=== PATIENT | female | born 2000 | race Caucasian/White ===

== ENCOUNTER 2018-12-11 08:01 | Outpatient (CLI) | payer BC ==
--- NOTE | 2018-12-11 09:42 | ULT ---
HEPATIC ULTRASOUND WITH DOPPLER: DATE: 12/11/2018. PROVIDED CLINICAL HISTORY: Elevated LFTs. FINDINGS: The visualized portions of the IVC and pancreas appear normal. The liver demonstrates a circumscribe d echogenic focus involving the right hepatic lobe near the dome anteriorly measuring less than a vivi timeter and likely reflecting a hemangioma. No additional mass is evident. No evidence for intrahep atic biliary ductal dilatation. The gallbladder demonstrates no stones, wall thickening, or pericholecystic fluid. The spleen is not enlarged and demonstrates no focal abnormality. The right kidney demonstrates no evidence for hydronephrosis or mass. The common duct is not dilated . Color Doppler and spectral analysis of the hepatic arterial, hepatic portal, hepatic venous, splenic arterial, and splenic venous waveforms demonstrate normal direction of flow. IMPRESSION: 1. Subcentimeter echogenic focus involving the right liver, most compatible with hemangioma. Consid er followup if indicated. 2. Normal hepatic Doppler. POS: [place]
== END 2018-12-11 08:02 | disposition home or self-care (01) ==
LOC: SCSULT 08:01
PROVIDERS: ATTEND Internal Medicine Gastroenterology
DX: R94.5 Abnormal results of liver function studies (principal); D18.09 Hemangioma of other sites
CPT/HCPCS: 76705